=== PATIENT | male | born 1985 | race Caucasian/White ===

== ENCOUNTER 2025-05-30 11:55 | Emergency (ER) | payer MEDICAID ==
[~2025-05-30] VITALS: Ht 182.9 cm; Wt 88.6 kg
[2025-05-30 11:56] VITALS: TEMP 98.5
--- NOTE | 2025-05-30 12:04 | Physician Documentation ---
History of Present Illness ~ Chief Complaint: ETOH Stated Complaint: ETOH Time Seen by MD: 12:01 HPI 36-year-old male presents via EMS for concerns over ETOH intoxication. EMS reports he has been on a [place]. His friends were on-site upon EMS revival arrival and reported history to EMS.. Patient states that [place] for the last two years and has been living in his car.. Patient does have glossy eyes but is speaking in clear sentences Medication Reconciliation Allergies: Coded Allergies: No Known Allergies (Unverified , 05/30/25) Review of Systems All Other Systems at this time: Reviewed and Negative ROS As stated above in the HPI, otherwise all systems are reviewed and negative. Physical Exam Vital Signs: Temperature: 98.5, Source: Oral, Heart Rate: 94, Respiratory Rate: 17, BP: 123/88, Pulse Oximetry: 98, Weight: 88.600 Physical Exam General: Alert, no apparent distress. HEENT: PERRL, EOMI, no injection, moist mucous membranes. Neck: Full range of motion. Respiratory: Lungs clear, no respiratory distress. Chest: No accessory muscle use. Cardiovascular: Regular rate and rhythm, no murmurs. Gastrointestinal: Soft, nontender, nondistended. Bowels sounds present. Extremities: Normal range of motion, no deformity. Neurologic: Oriented x4. Psychiatric: Normal mood and affect. Skin: Normal color, warm and dry. No edema, no ecchymosis. Progress Results/Orders Results/Orders Orders - DUANE PARRA [employer] Cult Urine + [place] [address] (05/30/25 13:29) Gait Test (05/30/25 14:29) Reassess Pt For Discharge (05/30/25 14:29) Completed Orders - DUANE PARRA [employer] Cbc/Diff (05/30/25 12:24) BMP (05/30/25 12:24) Lipase (05/30/25 12:24) CMP (05/30/25 12:24) Normal Saline 1000ml (0.9% Sodium Chlori (05/30/25 12:25) Ua W/Microscopic, Cult If Ind (05/30/25 12:55) Medications Received in ER Medications (Trade) Dose Ordered Sig/Frank Route PRN Reason Start Time Stop Time Status Last Admin Dose Admin (0.9% sodium chloride (NS) 1000ml IV soln) 1,000 ml ONCE ONCE IVB 05/30/25 12:25 05/30/25 12:26 DC 05/30/25 12:54 1,000 ML Vital Signs 05/30/25 05/30/25 11:56 14:27 Temp 98.5 Pulse 94 90 Resp 17 15 B/P (MAP) 123/88 109/70 (83) Pulse Ox 98 98 Laboratory Tests Test 05/30/25 12:50 05/30/25 12:55 White Blood Count 9.3 Red Blood Count 4.66 L Hemoglobin 15.6 Hematocrit 45.3 Mean Corpuscular Volume 97.2 Mean Corpuscular Hemoglobin 33.5 H Mean Corpuscular Hemoglobin Concent 34.5 Red Cell Distribution Width 14.7 H Platelet Count 389 Mean Platelet Volume 6.5 L Neutrophils (%) (Auto) 64.7 Lymphocytes (%) (Auto) 28.4 Monocytes (%) (Auto) 6.1 Eosinophils (%) (Auto) 0.4 Basophils (%) (Auto) 0.4 Neutrophils # (Auto) 6.0 Lymphocytes # (Auto) 2.6 Monocytes # (Auto) 0.6 Eosinophils # (Auto) 0.0 Basophils # (Auto) 0.0 CBC Comment Sodium Level 144 Potassium Level 3.7 Chloride Level 106 Carbon Dioxide Level 27.9 Anion Gap 10 Blood Urea Nitrogen 9 Creatinine 0.82 Estimated GFR/1.73 m2 > 90 BUN/Creatinine Ratio 11.0 Glucose Level 91 Calcium Level 8.1 L Total Bilirubin 0.1 Aspartate Amino Transf (AST/SGOT) 42 H Alanine Aminotransferase (ALT/SGPT) 62 Alkaline Phosphatase 80 Total Protein 6.8 Albumin 3.5 Globulin 3.3 Albumin/Globulin Ratio 1.1 Lipase 38 Chemistry Comments Urine Specimen Description Voided Urine Color Yellow Urine Clarity Clear Urine pH 5.5 Urine Specific [place] <=1.005 Urine Protein Negative Urine Glucose (UA) Negative Urine Ketones Negative Urine Occult Blood Negative Urine Nitrite Negative Urine Bilirubin Negative Urine Urobilinogen 0.2 Urine Leukocyte Esterase Moderate H Urine RBC 3-10 Urine WBC 5-10 H Urine Squamous Epithelial Cells Few Urine Bacteria None seen Urine Mucus None seen Urine Culture Indicated Indicated Volume Urine Centrifuged 10 ml Urine Comment Microbiology Date/Time Source Procedure Growth Status 05/30/25 13:29 Urine Voided Urine Culture - Preliminary Culture received. Resulted Medical Decision Making Findings Patient was clearly intoxicated upon arrival. Gave him a fluid bolus and he also received one EN route patient has been sleeping undisturbed for the last hour. I advised the nursing staff to monitor for any changes in his status. However going to let him sleep for the next hour and then add the patient evaluate for gait test and discharge Differential Dx:Considerations: Intoxication - ETOH, Intoxication - other drug, Sub. Abuse -continuous, Sub. Abuse-intermittent, Skull fracture, Fracture - other bone, Personality disorder, Closed head injury, Cervical spine injury, Abrasion, Confusion, Hematoma, Laceration, Foreign body, Dehydration, Encephalopathy, Hepatitis, Pancreatitis, Thiamine deficiency, Other Departure Disposition: 01 HOME / SELF CARE / HOMELESS Impression: Primary Impression: Alcoholic intoxication Condition: Stable Discharge Instructions: Alcohol Intoxication Referrals: NO PRIMARY CARE PROVIDER (PCP) Signature Scribe Signature: f Attestation: Scribed for Duane Parra Sales Correspondence Clerk by Duane Hudson NP . 05/30/25 12:07 DUANE PARRA NP May 30, 2025 12:04
[2025-05-30] MEDS: normal saline 1000ML IV soln IVB ONE (12:54)
[2025-05-30 13:19] LABS: MEAN PLATELET VOLUME 6.5 FL (7.4-10.4); RED CELL DISTRIBUTION WIDTH 14.7 % (11.5-14.5)
[2025-05-30 13:23] LABS: LEUKOCYTE ESTERASE ,URINE MODERATE (Neg); NITRITES, URINE NEGATIVE (Neg); OCCULT BLOOD,URINE NEGATIVE (Neg)
[2025-05-30 13:27] LABS: UA COLLECTION TYPE VOIDED
[2025-05-30 13:29] LABS: MUCUS STRANDS NONE SEEN /LPF (Neg); SQUAMOUS EPITHELIAL CELL,UR FEW /LPF (FEW)
[2025-05-30 13:35] LABS: CREATININE 0.82 MG/DL (0.60-1.10); TOTAL CARBON DIOXIDE 27.9 MMOL/L (24-32); eCRCL 134 ML/MIN; eGFR > 90 ML/MIN
[2025-05-30 14:27] VITALS: BP 109/70; PULSE 90; O2SAT 98
[2025-05-30 14:53] VITALS: RESP 15
== END 2025-05-30 14:53 | disposition home or self-care (01) ==
LOC: EDBD 11:56 → ER 11:56
DX: F10.129 Alcohol abuse with intoxication, unspecified (principal); Z79.899 Other long term (current) drug therapy; Y90.9 Presence of alcohol in blood, level not specified
CPT/HCPCS: 36415; 80053; 81001; 83690; 85025; 87088; 99284; J7030